=== PATIENT | male | born 1990 | race Caucasian/White ===

== ENCOUNTER 2018-12-03 14:14 | Emergency (ER) | payer OTHER ==
[2018-12-03 14:19] VITALS: BP 100/54; PULSE 61; RESP 18; TEMP 98.2
[2018-12-03] MEDS ORDERED: WATER FOR IRRIG, STERILE 1,000 ML BTL IRRIGATION ONE (14:27)
[2018-12-03] MEDS ORDERED: DIPH,PERTUS(ACELL)TETVAC-LF 0.5 ML VIAL IM ONE (14:27)
[2018-12-03] MEDS ORDERED: LIDOCAINE 1% INJ 10MG/ML (20 ML MDV) SQ STA (14:27)
--- NOTE | 2018-12-03 14:47 | XR ---
EXAMINATION TYPE: XR hand complete LT DATE OF EXAM: 12/03/2018 COMPARISON: NONE HISTORY: 28-year-old male with pain, first digit laceration TECHNIQUE: 3 views FINDINGS: No acute fracture, subluxation, or dislocation. Minimal punctate debris is seen within the dorsal second digit soft tissues at the level of the proxi mal phalanx, best seen on the oblique view. No other retained radiopaque foreign body is seen. IMPRESSION: 1. No acute osseous abnormality seen. 2. Minimal punctate hyperdense debris projecting along the dorsal aspect of the index finger at the l evel of the proximal phalanx could represent external debris or minimal punctate retained foreign bod y material.
--- NOTE | 2018-12-03 16:20 | ED ---
General Adult HPI - General Chief complaint: Wound/Laceration Stated complaint: Hand injury, [facility] Time Seen by Provider: 12/03/18 14:27 Source: patient, RN notes reviewed, old records reviewed Mode of arrival: ambulatory Limitations: no limitations - History of Present Illness Initial comments: 28-year-old male patient with x-ray, no pertinent past medical history presents to ED with chief complaint of laceration on dorsal aspect of second digit left hand. Patient 4 mL using a band saw cutting a piece of copper when his hand slipped causing laceration. Patient does report that he was wearing gloves at the time. Patient denies any other injury at this time. Patient denies any other complaints. Systemic: Pt denies fatigue, fever/chills, rash. Pt denies weakness, night sweats, weight loss. Neuro: Pt denies headache, visual disturbances, syncope or pre-syncope. HEENT: Pt denies ocular discharge or irritation, otalgia, rhinorrhea, pharyngitis or notable lymphadenopathy. Cardiopulmonary: Pt denies chest pain, SOB, heart palpitations, dyspnea on exertion. Abdominal/GI: Pt denies abdominal pain, n/v/d. : Pt denies dysuria, burning w/ urination, frequency/urgency. Denies new onset urinary or bowel incontinence. MSK: Pt denies myalgia, loss of strength or function in extremities. Neuro: Pt denies new onset weakness, paresthesias. - Related Data Previous Rx's Medication Instructions Recorded Cephalexin [Keflex] 500 mg PO Q6HR 5 Days #20 cap 12/03/18 Allergies Allergy/AdvReac Type Severity Reaction Status Date / Time No Known Allergies Allergy Verified 12/03/18 14:20 Review of Systems ROS Statement: Those systems with pertinent positive or pertinent negative responses have been documented in the HPI. ROS Other: All systems not noted in ROS Statement are negative. Past Medical History Past Medical History: No Reported History History of Any Multi-Drug Resistant Organisms: None Reported Past Surgical History: No Surgical Hx Reported Past Psychological History: No Psychological Hx Reported Smoking Status: Never smoker Past Alcohol Use History: None Reported Past Drug Use History: None Reported General Exam - General Exam Comments Initial Comments: Constitutional: NAD, AOX3, Pt has pleasant affect. HEENT: NC/AT, trachea midline, neck supple, no lymphadenopathy. Posterior pharynx non erythematous, without exudates. External ears appear normal, without discharge. Mucous membranes moist. Eyes PERRLA, EOM intact. There is no scleral icterus. No pallor noted. Cardiopulmonary: RRR, no murmurs, rubs or gallops, no JVD noted. Lungs CTAB in anterior and posterior ott. No peripheral edema. Abdominal exam: Abdomen soft and non-distended. Abdomen non-tender to palpation in all 4 quadrants. Bowel sounds active in LLQ. No hepatosplenomegaly. No ecchymosis Neuro: CN II-XII grossly intact. No nuchal rigidity. No raccon eyes, no islas sign, no hemotympanum. No cervical spinal tenderness. MSK: 3 cm laceration dorsal aspect of second digit of left hand. Proximal to PIP joint. Extension flexion intact MCP joint PIP joint DIP joint. Sensation intact. Capillary refill less than 2 seconds. Wound explored, no foreign body ligamentous or osseous involvement noted. Vigorously irrigated with 1 L normal saline. Approximated with 6 simple interrupted suture. No posterior calf tenderness bilaterally, homans sign negative bilaterally. Posterior tibialis and radial pulse +2 bilaterally. Sensation intact in upper and lower extremities. Full active ROM in upper and lower extremities, 5/5 stregnth. Limitations: no limitations Course Vital Signs 12/03/18 14:15 Temperature 98.2 F Pulse Rate 61 Respiratory 18 Rate Blood Pressure 100/54 O2 Sat by Pulse 98 Oximetry Procedures - Laceration Laceration #1 Consent Obtained: verbal consent Indication: laceration Site: hand (second digit L hand dorsal aspect) Size (cm): 3 Description: linear Depth: simple, single layer Anesthetic Used: lidocaine 1% Anesthesia Technique: local infiltration Amount (mls): 6 Pre-repair: wound explored, irrigated extensively (1L NS ), deep structures intact Type of Sutures: nylon Size of Sutures: 5-0 Number of Sutures: 6 Technique: simple, interrupted Patient Tolerated Procedure: well, no complications Medical Decision Making - Medical Decision Making 28-year-old male patient with x-ray, no pertinent past medical history presents to ED with chief complaint of laceration on dorsal aspect of second digit left hand. Patient 4 mL using a band saw cutting a piece of copper when his hand slipped causing laceration. Patient does report that he was wearing gloves at the time. Patient denies any other injury at this time. Patient denies any other complaints. Pt VSS, afebrile. Physical exam displayed: 3 cm laceration dorsal aspect of second digit of left hand. Proximal to PIP joint. Extension flexion intact MCP joint PIP joint DIP joint. Sensation intact. Capillary refill less than 2 seconds. Wound explored, no foreign body ligamentous or osseous involvement noted. Vigorously irrigated with 1 L normal saline. Approximated with 6 simple interrupted suture. Plain film of hand displayed no acute osseous abnormality. Minimal puncture at hyperdense debris located along the dorsal aspect of the index finger at the level of the proximal phalanx, could represent external debris is minimal puncture to obtain foreign body material. Wound vigorously irrigated 1 L normal saline. Patient tetanus updated in ED. Patient was discharged with primary care provider follow-up. Patient will be placed on Keflex prophylaxis. Case discussed with Dr. Peraza. Disposition Clinical Impression: Laceration Disposition: HOME SELF-CARE Condition: Stable Instructions (If sedation given, give patient instructions): Laceration (ED) Additional Instructions: Patient to adhere to previously discussed treatment plan and will take medication(s) as directed. Patient to follow up with PCP in 1-2 days. Patient to return to ED if symptoms do not improve. Please return for suture removal: Hand: 7-10 days Face: 5 days Chest/abdomen: 12-14 days Extremities: 7-10 days Scalp: 7 days Eyebrow: 5-7 days Foot/sole: 12-14 days Please monitor for signs and symptoms of infection including: redness, warmth, drainage, discharge. Please return to ED if these signs or symptoms occur, new signs or symptoms dev elop or if condition worsens in anyway. Prescriptions: Cephalexin [Keflex] 500 mg PO Q6HR 5 Days #20 cap Is patient prescribed a controlled substance at d/c from ED?: No Referrals: Adam Torres III, MD [Primary Care Provider] - 1-2 days
== END 2018-12-03 16:38 | disposition home or self-care (01) ==
LOC: EC 14:14
DX: S61.211A Laceration without foreign body of left index finger without damage to nail, initial encounter (principal); Z23 Encounter for immunization; W31.2XXA Contact with powered woodworking and forming machines, initial encounter
CPT/HCPCS: 73130; 90715; 99283; 12002; 90471; J2001